=== PATIENT | female | born 1990 | race Caucasian/White ===

== ENCOUNTER 2019-01-20 18:20 | Emergency (ER) | payer MEDICAID ==
[~2019-01-20] VITALS: Ht 162.6 cm; Wt 77.1 kg
[~2019-01-20 18:20] MED LIST: ACET500 PO; ALPR.5CR PO; CEPH500 PO; Dilaudid 2 mg Ta2 MG PO; FLUO10 PO; FLUO20 PO; HYDACE5 PO; IBUP600 PO; LEVSOD50 PO; Lasix20 MG PO; METO25 PO; NAPR550 PO; OXYACE7.5T PO; TYLENOL; [UNRECOGNIZED DRUG - OTHER]
[2019-01-20 18:56] LABS: BASOPHILS ABSOLUTE AUTO 0.04 K/mm3 (0.00-0.23); BASOPHILS PERCENT AUTO 0 % (0-2); EOSINOPHILS ABSOLUTE AUTO 0.43 K/mm3 (0.00-0.68); EOSINOPHILS PERCENT AUTO 3 % (0-6); Hematocrit 36.9 % (33.0-51.0); Hemoglobin 11.7 g/dL (11.5-16.0); IMMATURE GRAN ABSOLUTE AUTO 0.05 K/mm3 (0.00-0.10); IMMATURE GRAN PERCENT AUTO 0 % (0-1); LYMPHOCYTES ABSOLUTE AUTO 3.14 K/mm3 (0.84-5.20); LYMPHOCYTES PERCENT AUTO 20 % (21-46); MONOCYTES ABSOLUTE AUTO 1.33 K/mm3 (0.16-1.47); MONOCYTES PERCENT AUTO 8 % (4-13); Mean Corpuscular HGB 28.9 pg (26.0-34.0); Mean Corpuscular HGB Conc 31.7 g/dL (31.5-36.5); Mean Corpuscular Volume 91 fL (80-100); Mean Platelet Volume 10.3 fL (9.1-12.4); NEUTROPHILS ABSOLUTE AUTO 11.07 K/mm3 (1.96-9.15); NEUTROPHILS PERCENT AUTO 69 % (41-73); Platelet Count 336 K/mm3 (150-400); RDW Coefficient Variation 13.2 % (11.7-14.2); RDW Standard Deviation 43.7 fL (35.1-46.3); Red Blood Cell Count 4.05 M/mm3 (3.80-5.20); White Blood Cell Count 16.06 K/mm3 (4.00-11.30)
[2019-01-20 19:18] LABS: Albumin, Blood 3.8 g/dL (3.4-5.0); Bilirubin, Total 0.4 mg/dL (0.1-1.0); Bun/Creatinine Ratio 22.4 (12.0-20.0); Calcium, Blood 9.2 mg/dL (8.5-10.1); Creatinine, Blood 1.25 mg/dL (0.40-1.00); Globulin, Blood 3.7 g/dL (2.2-4.0); Potassium, Blood 3.8 mmol/L (3.5-5.5); Total Protein, Blood 7.5 g/dL (6.4-8.2)
[2019-01-20 20:26] LABS: Source, Urine Clean Catch
[2019-01-20 20:28] LABS: Bilirubin, Urine Neg (Neg); Blood, Urine 3+ (Neg); Glucose Qualitative, Urine Neg (Neg); Ketones, Urine Neg (Neg); Leukocyte Esterase, Urine Neg (Neg); Nitrite, Urine Neg (Neg); Protein, Urine 2+ (Neg); Urobilinogen, Urine NORM (Normal)
[2019-01-20 20:35] LABS: Appearance, Urine Clear (Clear); Color, Urine Yellow (P-Yellow)
[2019-01-20 20:40] LABS: Squamous Epithelial Cells Few /hpf (Few); White Blood Cells, Urine 0-2 /hpf (0-5)
[2019-01-20 20:41] LABS: Bacteria Mod /hpf
[2019-01-20] MEDS ORDERED: ONDA4ODT MM (21:57)
[2019-01-20] MEDS ORDERED: Percocet 5-3251 EACH PO (21:57)
== END 2019-01-20 22:20 | disposition home or self-care (01) ==
LOC: ER 18:20
PROVIDERS: Emergency Medicine
DX: N13.2 Hydronephrosis with renal and ureteral calculous obstruction (principal); E03.9 Hypothyroidism, unspecified; F32.9 Major depressive disorder, single episode, unspecified; F41.9 Anxiety disorder, unspecified; Z79.899 Other long term (current) drug therapy
CPT/HCPCS: 36415; 74176; 80053; 81001; 85025; 87086; 96361; 96374; 96375; 99284-25; A9270; A9270-GY; J1885; J2405; J3010; J7030

== ENCOUNTER 2019-02-15 23:20 | Emergency (ER) | payer OTHER ==
[~2019-02-15] VITALS: Ht 162.6 cm; Wt 79.8 kg
[~2019-02-15 23:20] MED LIST changes: +ONDA4ODT MM; +Percocet 5-3251 EACH PO
[2019-02-16 00:27] LABS: BASOPHILS ABSOLUTE AUTO 0.04 K/mm3 (0.00-0.23); BASOPHILS PERCENT AUTO 0 % (0-2); EOSINOPHILS PERCENT AUTO 1 % (0-6); Hematocrit 40.5 % (33.0-51.0); Hemoglobin 12.7 g/dL (11.5-16.0); IMMATURE GRAN ABSOLUTE AUTO 0.03 K/mm3 (0.00-0.10); IMMATURE GRAN PERCENT AUTO 0 % (0-1); LYMPHOCYTES ABSOLUTE AUTO 4.35 K/mm3 (0.84-5.20); LYMPHOCYTES PERCENT AUTO 33 % (21-46); MONOCYTES ABSOLUTE AUTO 0.81 K/mm3 (0.16-1.47); MONOCYTES PERCENT AUTO 6 % (4-13); Mean Corpuscular HGB 27.7 pg (26.0-34.0); Mean Corpuscular HGB Conc 31.4 g/dL (31.5-36.5); Mean Corpuscular Volume 88 fL (80-100); Mean Platelet Volume 10.4 fL (9.1-12.4); NEUTROPHILS ABSOLUTE AUTO 7.77 K/mm3 (1.96-9.15); NEUTROPHILS PERCENT AUTO 59 % (41-73); Platelet Count 387 K/mm3 (150-400); RDW Coefficient Variation 13.2 % (11.7-14.2); RDW Standard Deviation 42.6 fL (35.1-46.3); Red Blood Cell Count 4.59 M/mm3 (3.80-5.20)
[2019-02-16 00:46] LABS: Ethanol (Alcohol), Blood, Med 185 mg/dL
[2019-02-16 00:56] LABS: Alanine Aminotransfer (ALT/SGP 25 U/L (12-78); Albumin, Blood 4.1 g/dL (3.4-5.0); Albumin/Globulin Ratio 1.1 (0.8-1.8); Alk Phos 80 U/L (50-136); Anion Gap 8 mmol/L (6-16); Aspartate Aminotrans (AST/SGOT 13 U/L (12-37); Bilirubin, Total <0.1 mg/dL (0.1-1.0); Blood Urea Nitrogen 13 mg/dL (8-24); Bun/Creatinine Ratio 17.9 (12.0-20.0); CO2, Blood 24 mmol/L (21-32); Chloride, Blood 113 mmol/L (98-108); Creatinine, Blood 0.73 mg/dL (0.40-1.00); Globulin, Blood 3.9 g/dL (2.2-4.0); Glomerular Filtration Rate >60 (60-); Glucose, Blood 111 mg/dL (70-99); Potassium, Blood 3.8 mmol/L (3.5-5.5); Sodium, Blood 145 mmol/L (136-145)
[2019-02-16 01:34] LABS: Source, Urine Clean Catch
[2019-02-16 01:37] LABS: Bilirubin, Urine Neg (Neg); Blood, Urine 1+ (Neg); Glucose Qualitative, Urine Neg (Neg); Ketones, Urine Neg (Neg); Leukocyte Esterase, Urine Neg (Neg); Nitrite, Urine Neg (Neg); Protein, Urine Neg (Neg); Specific Gravity, Urine 1.015 (1.003-1.022); Urobilinogen, Urine NORM (Normal)
[2019-02-16 01:38] LABS: Appearance, Urine Clear (Clear); Color, Urine Yellow (P-Yellow)
[2019-02-16 01:42] LABS: Red Blood Cells, Urine 0-2 /hpf (0-2); Squamous Epithelial Cells Few /hpf (Few)
[2019-02-16 01:43] LABS: Mucus Light (0-Heavy)
[2019-02-16 01:44] LABS: Bacteria Mod /hpf
[2019-02-16 01:48] LABS: U Amphetamine Screen Not Detected; U Barbituate Screen Not Detected; U Benzodiazapine Screen Not Detected; U Buprenorphine Screen Not Detected; U Cannabinoids Screen DETECTED; U Cocaine Screen Not Detected; U Methadone Screen Not Detected; U Methamphetamine Screen DETECTED; U Opiates Screen Not Detected; U Oxycodone Screen Not Detected; U Phencyclidine Screen Not Detected; U Propoxyphene Screen Not Detected
[2019-02-16] MEDS ORDERED: Truvada Tablet1 EACH PO (03:15)
[2019-02-16] MEDS ORDERED: RALT400 PO (03:15)
[2019-02-18 15:06] LABS: FINAL INTERPRETATION Negative (.); HIV 1 AB Negative (Negative); HIV 2 AB Negative (Negative)
== END 2019-02-16 03:47 | disposition home or self-care (01) ==
LOC: ER 23:20
PROVIDERS: Emergency Medicine
DX: T76.21XA Adult sexual abuse, suspected, initial encounter (principal); F10.129 Alcohol abuse with intoxication, unspecified; F32.9 Major depressive disorder, single episode, unspecified; F41.9 Anxiety disorder, unspecified; Z79.899 Other long term (current) drug therapy
CPT/HCPCS: 80053; 81001; 85025; 86701; 86702; 87086; 93005; 93010; 96372; 99285; A9270-GY; G0480; J0696

== ENCOUNTER 2020-01-19 18:26 | Observation (INO) | payer OTHER ==
[~2020-01-19] VITALS: Ht 162.6 cm; Wt 70.3 kg
[~2020-01-19 18:26] MED LIST changes: +PROZAC40 MG PO; +RALT400 PO; +Truvada Tablet1 EACH PO
[2020-01-19] MEDS ORDERED: ACET325 PO (19:43)
[2020-01-19 22:38] LABS: BASOPHILS ABSOLUTE AUTO 0.03 K/mm3 (0.00-0.23); BASOPHILS PERCENT AUTO 0 % (0-2); EOSINOPHILS ABSOLUTE AUTO 0.11 K/mm3 (0.00-0.68); EOSINOPHILS PERCENT AUTO 1 % (0-6); Hematocrit 38.9 % (33.0-51.0); Hemoglobin 12.4 g/dL (11.5-16.0); IMMATURE GRAN ABSOLUTE AUTO 0.05 K/mm3 (0.00-0.10); IMMATURE GRAN PERCENT AUTO 0 % (0-1); LYMPHOCYTES PERCENT AUTO 16 % (21-46); MONOCYTES ABSOLUTE AUTO 1.38 K/mm3 (0.16-1.47); MONOCYTES PERCENT AUTO 8 % (4-13); Mean Corpuscular HGB 28.9 pg (26.0-34.0); Mean Corpuscular HGB Conc 31.9 g/dL (31.5-36.5); Mean Corpuscular Volume 91 fL (80-100); Mean Platelet Volume 11.1 fL (9.1-12.4); NEUTROPHILS PERCENT AUTO 75 % (41-73); Platelet Count 314 K/mm3 (150-400); RDW Coefficient Variation 13.3 % (11.7-14.2); RDW Standard Deviation 44.2 fL (35.1-46.3); Red Blood Cell Count 4.29 M/mm3 (3.80-5.20); White Blood Cell Count 16.47 K/mm3 (4.00-11.30)
[2020-01-19 22:47] LABS: Beta HCG, Quantitative, Serum <1 mIU/mL (0-3)
[2020-01-19 22:50] LABS: Alanine Aminotransfer (ALT/SGP 23 U/L (12-78); Albumin, Blood 3.5 g/dL (3.4-5.0); Albumin/Globulin Ratio 0.9 (0.8-1.8); Alk Phos 64 U/L (50-136); Anion Gap 8 mmol/L (6-16); Aspartate Aminotrans (AST/SGOT 46 U/L (12-37); Bilirubin, Total 0.6 mg/dL (0.1-1.0); Blood Urea Nitrogen 21 mg/dL (8-24); Bun/Creatinine Ratio 31.3 (12.0-20.0); CO2, Blood 23 mmol/L (21-32); Calcium, Blood 8.7 mg/dL (8.5-10.1); Chloride, Blood 107 mmol/L (98-108); Creatinine, Blood 0.67 mg/dL (0.40-1.00); Globulin, Blood 3.8 g/dL (2.2-4.0); Glomerular Filtration Rate >60 (60-); Glucose, Blood 99 mg/dL (70-99); Potassium, Blood 4.4 mmol/L (3.5-5.5); Sodium, Blood 138 mmol/L (136-145); Total Protein, Blood 7.3 g/dL (6.4-8.2)
[2020-01-19 23:14] LABS: U Amphetamine Screen Not Detected; U Barbituate Screen Not Detected; U Benzodiazapine Screen Not Detected; U Buprenorphine Screen Not Detected; U Cannabinoids Screen DETECTED; U Cocaine Screen Not Detected; U Methadone Screen Not Detected; U Methamphetamine Screen Not Detected; U Opiates Screen DETECTED; U Oxycodone Screen Not Detected; U Phencyclidine Screen Not Detected; U Propoxyphene Screen Not Detected
--- NOTE | 2020-01-20 06:00 | NUR ---
SHIFT SUMMARY AAO X4, AMBULATORY IN ROOM. STATES PAIN IS MANAGEABLE WITH PRN PAIN MEDS. STATES THAT SHE IS FEELING MUCH BETTER. STAFFING OPERATIONS MANAGER DEPUTY IN ROOM WITH HER. DRESSING TO LEFT LATTERAL CHEST WALL IS C/D/I. DENIES FURTHER NEEDS OR WANTS AT THIS TIME. SAFETY MEASURES IN PLACE. WILL CONTINUE TO MONITOR AND GIVE HAND OFF TO ONCOMING SHIFT USING SBAR.
--- NOTE | 2020-01-20 11:40 | NUR ---
DISCHARGE AFTER DR NANI HARE. PT CLEARED FOR DC. STATES UNDERSTANDING OF REASONS TO CALL FOR HELP. OFFICER IN ROOM FOR DISCHARGE INSTRUCTIONS. OFFICER ESCORT HAS BEEN NEAR PT T/O STAY. ESCORTED OUT VIA W/C TO POLICE CAR.
== END 2020-01-20 11:48 | disposition home or self-care (01) ==
LOC: ER 18:26 → SURS 18:27
PROVIDERS: Emergency Medicine; ADMIT Surgery
DX: R06.02 Shortness of breath (principal); E03.9 Hypothyroidism, unspecified; F32.9 Major depressive disorder, single episode, unspecified; F41.9 Anxiety disorder, unspecified; Z79.899 Other long term (current) drug therapy; Z96.89 Presence of other specified functional implants
CPT/HCPCS: 32551; 71045; 71046; 71250; 80053; 84702; 85025; 96361; 96374-59; 96375; 96375-59; 96376; 99285-25; G0378; J1170; J2405; J2704; J3010; J7030